=== PATIENT | male | born 1960 | race Caucasian/White ===

== ENCOUNTER 2017-01-13 13:34 | Observation (INO) | payer OTHER ==
--- NOTE | 2017-01-13 13:50 | CPEKG ---
Heart Rate: 55 RR Interval: 1091 P-R Interval: 196 QRSD Interval: 94 QT Interval: 432 QTC Interval: 414 P Palmer: 31 QRS Palmer: -15 T Wave Palmer: 175 EKG Severity - ABNORMAL ECG - EKG Impression: SINUS RHYTHM EKG Impression: BORDERLINE LEFT AXIS DEVIATION EKG Impression: similar to EKG 01/16/16 EKG Impression: T wave inversions laterally Electronically Signed By: Martha Vega 13-Jan-2017 21:08:12
[2017-01-13 14:02] LABS: % IMMATURE GRANULYOCYTES 0.4 % (0.0-1.1); ABSOLUTE IMMATURE GRANULOCYTES 0.03 10^3/uL (0.00-0.10); ADD DIFF? NO; ADD MORPH? NO; ADD SCAN? NO; ATYPICAL LYMPHOCYTE FLAG 10 (0-99); FRAGMENT RBC FLAG 0 (0-99); HEMATOCRIT 46.1 % (40.0-51.0); HEMOGLOBIN 16.1 g/dL (13.7-17.5); LEFT SHIFT FLG 0 (0-99); LIPEMIA HEMOLYSIS FLAG 90 (0-99); MEAN CELL HEMOGLOBIN 29.3 pg (27.9-34.1); MEAN CELL HEMOGLOBIN CONCENTR. 34.9 g/dL (32.4-36.7); MEAN PLATELET VOLUME 9.9 fL (8.7-11.7); PLATELET CLUMPS FLAG 10 (0-99); PLATELET COUNT 227 10^3/uL (150-400); RED BLOOD CELL COUNT 5.49 10^6/uL (4.40-6.38); RED CELL DISTRIBUTION WIDTH 13.2 % (11.5-15.2)
--- NOTE | 2017-01-13 14:11 | EDPHY ---
H & P Time Seen by Provider: 01/13/17 13:54 HPI/ROS: CHIEF COMPLAINT: Shortness of breath HISTORY OF PRESENT ILLNESS: This patient is a 56 year old male with history of OK who presents to the Emergency Department complaining of worsening exertional dyspnea over the past week, significantly worsened over the past two days. He reports that he has been unable to complete his normal runs secondary to shortness of breath. He also reports associated chest discomfort beginning two days ago when walking around his office and presenting intermittently since that time, while exercising and at rest. He also complains of increased fatigue over the past week. He presents today after he was unable to carry a box up two flights of stairs without severe dyspnea. Medical history includes CAD with prior OK and subsequent stenting in 2013; he is followed by Dr. Anjelica Shoemaker, cardiology. REVIEW OF SYSTEMS: Constitutional: No fever, no chills Eyes: No visual changes ENT: No sore throat Respiratory: +exertional dyspnea, no cough Cardiac: +chest discomfort Gastrointestinal: No nausea, no vomiting, no abdominal pain Genitourinary: No hematuria, no dysuria Musculoskeletal: No leg pain or swelling Skin: No rash Neurological: No headache, no numbness, no weakness Psychiatric: No depression Past Medical/Surgical History: CAD with prior OK; cardiac stenting. Social History: with kids. at bedside. Smoking Status: Never smoked Physical Exam: General Appearance: Alert, no distress Eyes: Pupils equal and round, no conjunctival pallor or injection ENT, Mouth: Mucous membranes moist Neck: Normal inspection Respiratory: Lungs are clear to auscultation Cardiovascular: Regular rate and rhythm Gastrointestinal: Abdomen is soft and non- tender Neurological: A&O, nonfocal, normal gait Skin: Warm and dry, no rash Extremities: Nontender, no pedal edema Psychiatric: Mood and affect normal Constitutional: Initial Vital Signs Temperature (C) 36.9 C 01/13/17 13:37 Heart Rate 65 01/13/17 13:37 Respiratory Rate 20 01/13/17 13:37 Blood Pressure 151/99 H 01/13/17 13:37 O2 Sat (%) 97 01/13/17 13:37 O2 Delivery Mode Room Air Allergies/Adverse Reactions: erythromycin base Allergy (Verified 01/15/16 19:16) Penicillins Allergy (Verified 01/15/16 19:16) Home Medications: Medication Instructions Recorded Aspirin EC [Aspirin EC 81 mg (*)] 81 mg PO DAILY 01/15/16 Atorvastatin Calcium [Lipitor 40 40 mg PO DAILY 01/15/16 mg (*)] Assumption-3 Fatty Acids [Fish Oil 1000 1,000 mg PO DAILY 01/15/16 mg (*)] Ticagrelor [Brilinta] 90 mg PO BID #0 tablet 01/16/16 Lisinopril [Zestril 40 mg (*)] 40 mg PO HS 01/13/17 amLODIPine BESYLATE [Norvasc 5 mg 5 mg PO DAILY 01/13/17 (*)] Medical Decision Making - Diagnostics EKG Interpretation: EKG interpreted by me reveals sinus rhythm, rate 55; borderline left axis deviation; T wave changes in inferior lateral leads similar to EKG obtained 01/15. Imaging Results: CXR: NAD Imaging: I viewed and interpreted images myself ED Course/Re-evaluation: This 56-year-old male presents with increasing dyspnea, fatigue over the past two weeks and chest discomfort beginning two days prior to arrival, worse with exertion. He has history of CAD with prior OK and cardiac stenting which presented primarily with dyspnea at that time. Clinical presentation c/w unstable angina. stat EKG without ischemia or dysrhythmia. His exam is benign. Will proceed with cardiac workup; regardless of outcome, plan for admission for continued cardiac monitoring and consultation with on-call health information manager. The patient takes Aspirin daily and took one prior to arrival today. He also took his statin and Lisinopril this morning. Labs obtained: Troponin is negative. Chest x-ray obtained and is normal. EKG is similar to prior obtained in 12/2015. I discussed lab and imaging results with the patient, who is relieved. We will proceed with plan for admission at this time for further cardiac observation. The patient is agreeable to this. 1432: Consultation with Dr. Radha Snyder, hospitalist, who accepts admission for cardiac observation. 1440: Consultation with Dr. Sergei Orourke, health information manager, who will visit the patient in the hospital. Pt asymptomatic throughout his ED stay. 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 Differential Diagnosis: includes though not limited to ACS, PE, CHF, pneumonia, bronchospasm - Data Points Laboratory Results: Laboratory Results 01/13/17 13:50 01/13/17 13:50 Medications Given: Discontinued Medications Amlodipine Besylate (Norvasc) 5 mg PO DAILY [facility] Stop: 07/13/17 08:59 Last Admin: 01/14/17 11:28 Dose: 5 mg Aspirin Buffered (Aspirin Ec) 81 mg PO DAILY [facility] Stop: 07/13/17 08:59 Last Admin: 01/14/17 11:27 Dose: 81 mg Atorvastatin Calcium (Lipitor) 40 mg PO DAILY [facility]IN Stop: 07/13/17 08:59 Last Admin: 01/14/17 11:27 Dose: 40 mg Enoxaparin Sodium (Lovenox) 40 mg SC DAILY TEVIN Stop: 07/13/17 08:59 Last Admin: 01/14/17 11:38 Dose: Not Given Lisinopril (Zestril) 40 mg PO HS [facility] Stop: 07/12/17 20:59 Last Admin: 01/13/17 20:36 Dose: 40 mg [id number] Ethyl Esters (Fish Oil) 1,000 mg PO DAILY TEVIN Stop: 07/13/17 08:59 Last Admin: 01/14/17 11:28 Dose: 1,000 mg Ticagrelor (Brilinta) 90 mg PO BID [facility]IN Stop: 07/12/17 20:59 Last Admin: 01/14/17 11:28 Dose: 90 mg Departure - Departure Disposition: [facility] Inpatient Acute Clinical Impression: Chest pain Qualifiers: Chest pain type: precordial pain Qualified Code(s): R07.2 - Precordial pain Dyspnea Qualifiers: Dyspnea type: dyspnea on exertion Qualified Code(s): R06.09 - Other forms of dyspnea Condition: Good Report Scribed for: Martha Vega Report Scribed by: Heaven Babcock Date of Report: 01/13/17 Time of Report: 14:11 Physician Review and Approval Statement: 01/13/17 14:11 Portions of this note were transcribed by a medical laboratory technical officer. I personally performed a history, physical exam, medical decision making, and confirmed accuracy of information the transcribed note.
[2017-01-13 14:13] LABS: ANION GAP 10 mEq/L (8-16); CALCIUM 9.8 mg/dL (8.5-10.4); CARBON DIOXIDE 28 mEq/l (22-31); CHLORIDE 104 mEq/L (97-110); CREATININE 1.1 mg/dL (0.7-1.3); GLOMERULAR FILTRATION RATE > 60; GLUCOSE 92 mg/dL (70-100); POTASSIUM 4.1 mEq/L (3.5-5.2); SODIUM 142 mEq/L (134-144)
[2017-01-13 14:25] LABS: TROPONIN I 0.016 ng/mL (0-0.034)
[2017-01-13] MEDS ORDERED: ONDANSETRON DISINTEGRATING 4 MG TAB PO PRN (15:17)
[2017-01-13] MEDS ORDERED: oxyCODONE IR 5 MG TAB PO PRN (15:17)
[2017-01-13] MEDS ORDERED: LORazepam 0.5 MG TAB PO PRN (15:17)
[2017-01-13] MEDS ORDERED: ACETAMINOPHEN 325 MG TAB PO PRN (15:17)
[2017-01-13] MEDS ORDERED: ONDANSETRON 4 MG/2 ML VIAL IVP PRN (15:17)
[2017-01-13] MEDS ORDERED: ALBUTEROL 60 PUFFS/8 GM MDI IH PRN (15:17)
--- NOTE | 2017-01-13 18:41 | GHP ---
[f rep st] HISTORY AND PHYSICAL DATE OF ADMISSION: 01/13/2017 CHIEF COMPLAINT: Shortness of breath with exertion. HISTORY: This is a 56-year-old man who has a past medical history of coronary artery disease, statu s post stent to the LAD in April 2014. He notes that he is presenting today with issues of shor tness of breath after climbing 2 flights of stairs and a couple weeks of decreased exercise toleranc e and generalized fatigue. He notes that when he first developed symptoms related to his coronary a rtery disease, they were very similar to the symptoms he is having now. He notes that at that time he had nearly completed a triathlon when he began to develop symptoms of severe fatigue. He was see n at [facility], where he ultimately was evaluated with cardiac catheterization and found to taylor ve a high-grade proximal LAD lesion that was stented. Shortly after that procedure, he was noted to have an EF of 40% that later normalized to 60% to 65%. Since that time. He has had similar sympto ms twice; once in 2013 and the last time in 2015, at which times he was evaluated with coronary rani ogram x2, both of which were negative. He has had treadmill stress tests x2 also since that initial cardiac catheterization, both of which have been negative. He is followed by Dr. Anjelica Shoemaker, and w hen he developed symptoms as described above, he did call her office and was instructed to [facility] for further evaluation. At the time of my evaluation, he feels fine and sta perla that he has no chest pain or shortness of breath while at rest., though, again, does have sympto ms with decreased exercise tolerance and increasing fatigue over the last couple weeks. He has had no swelling of his lower extremities. He has had no fevers or chills, no cough, and no abdominal or urinary complaints. He does not feel as if he has been getting cold or other upper respiratory inf ection. PAST MEDICAL HISTORY: 1. Coronary artery disease, as described in the HPI. 2. Hypertension. 3. Hyperlipidemia, though most recent LDL was 69. PAST SURGICAL HISTORY: Rotator cuff, and coronary angiography. FAMILY HISTORY: Father of an CT at age 65. He also suffered from systemic scleroderma. Sagar calix had hypertension and hyperlipidemia and ultimately of liver cancer. He has a sister who at 45 of CHF in the setting of concurrent Down syndrome. SOCIAL HISTORY: Patient is . He is a never smoker. He is very active, again, running regul glenny and taking part in triathlons. He is a rare user of alcohol. Denies any drug use. Even in th is last week when he has been feeling badly, he has been running up to 3 miles a day. He works as a [employer]. He has 3 children. REVIEW OF SYSTEMS: 10-point review of systems obtained and negative, except as per HPI. MEDICATIONS: Include: 1. Amlodipine. 2. Brilinta. 3. Fish oil. 4. Lisinopril. 5. Atorvastatin. 6. Aspirin. ALLERGIES: Include erythromycin and penicillin. PHYSICAL EXAMINATION: VITAL SIGNS: BP 132/95, heart rate 55, respiratory rate 15, O2 sat 95% on ro om air, temperature is 36.4. GENERAL APPEARANCE: A well-developed/well-nourished man. He is awake and alert. He is in no acute distress. EYES: Anicteric. HENT: Oropharynx clear. CARDIOVASCULA R: RRR, no MRG. PULMONARY: CTA bilaterally. Normal work of breathing. ABDOMEN: Soft, nontender , nondistended. EXTREMITIES: No clubbing, cyanosis, or edema. SKIN: Warm, dry, and well perfused . NEURO/PSYCH: Oriented, appropriate, and pleasant. CLINICAL DATA: Labs reviewed. Basic metabolic panel is completely within normal limits. Troponin is 0.016. ProBNP of 100. CBC is unremarkable. Chest x-ray personally reviewed and interpreted shows chronic versus recurrent airways disease witho ut any consolidation or other acute abnormality. EKG personally reviewed and interpreted shows sinus rhythm. There is a borderline left axis deviati on and evidence of lateral infarct. When compared with prior from 1 year ago, there is no significa nt change other than the prior showed evidence of LVH and secondary repolarization abnormality that has since resolved. ASSESSMENT AND PLAN: This is a 56-year-old man with past medical history of coronary artery disease , presenting with decreased exercise tolerance, shortness of breath, and fatigue, consistent with hi s prior anginal equivalent. 1. Decreased exercise tolerance/shortness of breath/fatigue. Again, this is consistent with his pr ior anginal equivalent. He has no acute EKG changes, and initial workup, including troponin, is unr emarkable. Chest x-ray is likewise unremarkable. His vital signs are normal. This patient and his 's preference is that he be at least considered for coronary angiography, given the similarity to his initial event. Cardiology has been consulted and will see the patient while inhouse. He martín l be kept n.p.o. after midnight in case they do elect to perform an angiography in the morning. An echocardiogram has been ordered and will be performed either this evening or tomorrow. He will be m onitored on telemetry with serial EKGs and troponins. He has had a recent TSH checked, which was 3. 7, so will not repeat that at this time in terms of looking for other causes of his new fatigue. 2. Hypertension. Will continue amlodipine. His blood pressure has been reasonably controlled garry castro this hospitalization thus far. 3. Hyperlipidemia. Continue atorvastatin. DISPOSITION: Observation status. Likely patient will need less than 48 hours' stay for evaluation and management of above. Patient is new to my care. Old records reviewed and summarized as per HPI and past medical history. Care plan reviewed with ER physician, including plans for cardiology consultation and monitoring o n telemetry. Further history obtained from patient's present at bedside. /[id number]/MODL
[2017-01-13 20:11] VITALS: RESP 16
[2017-01-13] MEDS: TICAGRELOR 90 MG TAB PO SCH (20:36)
[2017-01-13] MEDS ORDERED: LISINOPRIL 40 MG TAB PO SCH (21:00)
[2017-01-14 07:53] LABS: ABSOLUTE IMMATURE GRANULOCYTES 0.07 10^3/uL (0.00-0.10); ADD DIFF? NO; ADD MORPH? NO; ADD SCAN? NO; ATYPICAL LYMPHOCYTE FLAG 0 (0-99); FRAGMENT RBC FLAG 10 (0-99); HEMATOCRIT 43.1 % (40.0-51.0); HEMOGLOBIN 15.1 g/dL (13.7-17.5); LEFT SHIFT FLG 0 (0-99); LIPEMIA HEMOLYSIS FLAG 90 (0-99); MEAN CELL HEMOGLOBIN 29.4 pg (27.9-34.1); MEAN CELL VOLUME 83.9 fL (81.5-99.8); MEAN PLATELET VOLUME 9.8 fL (8.7-11.7); PLATELET CLUMPS FLAG 10 (0-99); PLATELET COUNT 219 10^3/uL (150-400); RED BLOOD CELL COUNT 5.14 10^6/uL (4.40-6.38); RED CELL DISTRIBUTION WIDTH 13.3 % (11.5-15.2)
[2017-01-14 08:14] LABS: ANION GAP 10 mEq/L (8-16); CALCIUM 9.4 mg/dL (8.5-10.4); CARBON DIOXIDE 26 mEq/l (22-31); CHLORIDE 105 mEq/L (97-110); CREATININE 1.1 mg/dL (0.7-1.3); GLOMERULAR FILTRATION RATE > 60; GLUCOSE 91 mg/dL (70-100); POTASSIUM 4.2 mEq/L (3.5-5.2); SODIUM 141 mEq/L (134-144)
[2017-01-14 08:21] VITALS: BP 131/89; PULSE 48; TEMP 98; O2SAT 95
[2017-01-14] MEDS ORDERED: ASPIRIN EC 81 MG TAB PO SCH (09:00)
[2017-01-14] MEDS ORDERED: ATORVASTATIN CALCIUM 40 MG TAB PO SCH (09:00)
[2017-01-14] MEDS ORDERED: ENOXAPARIN 40 MG/0.4 ML SYR SC SCH (09:00)
[2017-01-14] MEDS ORDERED: OMEGA-3 FATTY ACIDS 1,000 MG CAP PO SCH (09:00)
[2017-01-14] MEDS ORDERED: amLODIPine BESYLATE 5 MG TAB PO SCH (09:00)
[2017-01-14] MEDS: TICAGRELOR 90 MG TAB PO SCH (11:28)
--- NOTE | 2017-01-14 12:36 | PDCARPN ---
Cardiology Progress Note Assessment/Plan: 56-year-old male with a history of CAD and a non-ST segment elevation AL in April 2014 treated with PCI of the proximal LAD at [facility]. (Followed by Dr. Shoemaker at [facility].) Presented to the emergency department yesterday because of increasing episodes of fatigue over the past 2 weeks. He has had increased stress at work but feels that he is sleeping okay. He has noticed that he simply feels more fatigued than usual. He does not feel that his exercise capacity is as high as it should be. He exercises regularly to a fairly vigorous level but experienced dyspnea carrying a doll house upstairs yesterday. His NSTEMI occurred during a triathlon and his symptoms at that time were predominantly fatigue without any significant component of chest discomfort. This prompted concern over his cardiac status leading to his ER visit. He has been observed on telemetry overnight. He has not had any chest discomfort, arrhythmias or signs of CHF. Serial troponin levels have been normal. His ECG demonstrated lateral precordial T wave inversions similar to this time last year. Since April 2014, he has had 2 repeat heart catheterizations and 2 stress tests. His last heart catheterization took place almost exactly one year ago during a short hospital admission for similar symptoms of fatigue accompanied by some chest tightness. That study demonstrated that his LAD stent was widely patent and the remainder of his coronary tree demonstrated minimal atherosclerosis. (personally reviewed) Recommendation: An echocardiogram is pending this morning. If that study demonstrates normal left ventricular systolic function, I think he can be discharged with plans for outpatient stress testing. In discussing this, his expressed some concern over not knowing exactly what was happening with his coronary circulation. We discussed the mechanisms for acute coronary syndromes and I reassured them that he does not currently have any evidence for a plaque rupture type event. I also explained that even if we went to the cardiac catheterization lab today and found that he had moderate stenoses, it would not alter his current plan of aggressive secondary prevention. They were reassured after an thorough discussion. I will instruct the office staff at [facility] to contact him to arrange an outpatient stress test with nuclear imaging. 01/14/17 12:32 Subjective: No chest pain, dyspnea, or palpitations. Reviewed/Discussed With: family, hospitalist Objective: Vital Signs (8 Hrs) Temp Pulse Resp BP Pulse Ox 01/14/17 08:18 36.7 C 48 L 16 131/89 H 95 Intake/Output (24 Hrs) 01/13/17 01/14/17 01/15/17 05:59 05:59 05:59 Intake Total 1200 Balance 1200 Intake: Oral (ml) 1200 Other: Weight 84.4 kg Number of Voids Toilet 2 Result Diagrams: 01/14/17 03:42 01/14/17 03:42 Cardiac Labs: Cardiac Lab Results (72 Hrs) 01/14/17 01/13/17 00:00 18:11 Troponin I 0.020 0.013 - Physical Exam Constitutional: WDWN, healthy appearing, no apparent distress Eyes: anicteric sclera Ears, Nose, Mouth, Throat: moist mucous membranes Cardiovascular: regular rate and rhythm, no murmurs, no rubs, no gallops Respiratory: clear to auscultate bilat Gastrointestinal: normoactive bowel sounds, no tenderness, no masses Skin: no rashes, no edema Neurologic: AAOx3 Psychiatric: not anxious ICD10 Worksheet Patient Problems: Problems Problem Status Onset Chest pain Acute Dyspnea Acute Elevated troponin Acute
--- NOTE | 2017-01-14 13:09 | CPEKG ---
Heart Rate: 52 RR Interval: 1154 P-R Interval: 196 QRSD Interval: 92 QT Interval: 448 QTC Interval: 417 P Rillton: 27 QRS Rillton: -32 T Wave Rillton: 186 EKG Severity - ABNORMAL ECG - EKG Impression: SINUS RHYTHM EKG Impression: LEFT AXIS DEVIATION EKG Impression: LATERAL INFARCT, AGE INDETERMINATE Electronically Signed By: Jade Aparicio 14-Jan-2017 19:31:03
--- NOTE | 2017-01-14 13:14 | PDDCSUM ---
Discharge Summary Discharge Summary: Dates of service 01/13-01/14/17 Consultations: cardiology procedures performed: echo Hospital course by problem: # fatigue with exertion: this has been his anginal equivalent in the past, trops negative, no ecg changes and no changes noted on echo. 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
--- NOTE | 2017-01-14 15:15 | ECHO ---
[id number] + + [address] : : [place] [address] : : [phone] + + Adult Echocardiographic Report + -------+ :Name: DARYL RAMOS SStudy Date: 01/14/2017 11:47 AM BP: 131/89 mmH g : : Hospital Admission Number: [id number] Locati on: 219: :: 1960 Gender: Male Height: 71 in : :Age: 56 yrs Race: WH Weight: 186 lb : :Reason For Study: chest pain : : BSA: 2.0 meter s2 : :History: CAD, stent : + -------+ MMode/2D Measurements \T\ Calculations IVSd: 1.2 cm RVDd: 3.6 cm FS: 36.1 % Ao root diam: LVPWd: 1.0 cm LVIDd: 5.1 cm EDV(Teich): 3.5 cm LVIDs: 3.2 cm 121.1 ml ESV(Teich): 41.8 ml EF(Teich): 65.5 % LVLd ap4: 9.8 cm SV(MOD-sp4): EDV(MOD-sp4): 108.0 ml 164.0 ml LVLs ap4: 8.2 cm ESV(MOD-sp4): 56.0 ml EF(MOD-sp4): 65.9 % Normal Measurement Values: + + :LVIDd (3.5-5.7cm) IVSd (0.6-1.1cm) LVPWd (0.6-1.1cm) Aortic Root (2.0-3.7cm)Left Atrium (1.5-4.0cm): :LV Vol(d) (76-115ml) LV Vol(s) (29-48ml) Ejec Fraction (50-65%)PV John (0.6- 1.2m/s) TV John (0.4-1.0m/s) : :MV E John (0.8-1.0m/s)MV A John (0.3-1.0m/s)LVOT John (0.7-1.2m/s) Asc Ao John ( 0.9-1.8m/s) : + + Doppler Measurements \T\ Calculations MV E max john: Ao V2 max: LV V1 max: PA V2 max: 44.2 cm/sec 95.0 cm/sec 110.0 cm/sec 92.3 cm/sec MV A max john: Ao max PG: LV V1 max PG: PA max P.3 cm/sec 3.6 mmHg 4.8 mmHg 3.4 mmHg MV E/A: 0.83 MV dec time: 0.34 sec Left Ventricle The left ventricle is normal in size and function. There is normal left ventricular wall thickness. Ejection Fraction = 65%. No regional wall motion abnormalities noted. Right Ventricle The right ventricle is normal in size and function. Atria The left atrial size is normal. Right atrial size is normal. Mitral Valve The mitral valve is normal in structure and function. There is no mitral valve stenosis. There is trace to mild mitral regurgitation. Tricuspid Valve The tricuspid valve is normal in structure and function. There is no tricuspid stenosis. There is trace tricuspid regurgitation. Aortic Valve The aortic valve is normal in structure and function. The aortic valve is trileaflet. There is no aortic stenosis. There is no aortic insufficiency. Pulmonic Valve The pulmonic valve is not well visualized. Great Vessels The aortic root is normal size. Pericardium/Pleural There is no pericardial effusion. Conclusion A two-dimensional transthoracic echocardiogram with M-mode and Doppler was performed. The left ventricle is normal in size and function. Ejection Fraction = 65%. No regional variation in contractility. Normal appearing valvular structures. There is trace to mild mitral regurgitation. There is trace tricuspid regurgitation. Final Reading Physician: Alfredo Slade signed on 01/14/2017 03:14 PM Ordering Physician: Era Snyder Performed By: Sangeeta Sultana
== END 2017-01-14 13:44 | disposition home or self-care (01) ==
LOC: F2W 14:50
PROVIDERS: ADMIT Internal Medicine; ATTEND Internal Medicine
DX: R53.83 Other fatigue (principal); R06.09 Other forms of dyspnea; I25.10 Atherosclerotic heart disease of native coronary artery without angina pectoris; I10 Essential (primary) hypertension; I25.2 Old myocardial infarction; E78.5 Hyperlipidemia, unspecified; Z79.82 Long term (current) use of aspirin; Z82.49 Family history of ischemic heart disease and other diseases of the circulatory system; Z95.5 Presence of coronary angioplasty implant and graft; Z88.0 Allergy status to penicillin
CPT/HCPCS: 71020; 93005; 93306; G0378

== ENCOUNTER 2018-08-04 20:06 | Observation (INO) | payer OTHER ==
[2018-08-04] MEDS ORDERED: ASPIRIN 81 MG CHEWABLE TAB PO ONE (20:17)
--- NOTE | 2018-08-04 20:29 | EDPHY ---
H & P Time Seen by Provider: 08/04/18 20:19 HPI/ROS: HPI Fatigue, chest pressure, history of coronary artery disease. 57-year-old male by private vehicle with his . This patient reports that he has been feeling unusually fatigued over the last 2-3 days and much more so today. Today's fatigue was accompanied by chest pressure which is been present for the last 2-3 hours but seems better now. He reports that he has a history of an AL and LAD stent 4 years ago. He reports that he presented to the emergency department with very similar symptoms to this for years ago when he had his AL. He reports that he has had chronically elevated troponins without evidence of acute coronary syndrome as well. He denies any significant shortness of breath. ROS: Constitutional: No fever, no chills. As above. Eyes: No discharge. No changes in vision. ENT: No sore throat. No nasal congestion or rhinorrhea. Respiratory: No cough. No shortness of breath. Cardiac: As above, no palpitations. Gastrointestinal: No abdominal pain, no vomiting, no diarrhea. Genitourinary: No hematuria. No dysuria or increased frequency with urination. Musculoskeletal: No back pain. No neck pain. No myalgias or arthralgias. Skin: No rashes. Neurological: No headache. No focal weakness or altered sensation. Past medical history: Hyperlipidemia, hypertension, non STEMI AL with stent placement as above 2013, Dr. 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 Social history: Nonsmoker. Here with his . No alcohol. Physical Exam: General Appearance: Alert, no distress. This patient is responding to questions appropriately and in full sentences. This patient appears well- hydrated and well-nourished. Eyes: Pupils equal and round no pallor or injection. No lid edema, erythema or injection. Respiratory: There are no retractions, lungs are clear to auscultation with good air movement bilaterally. Cardiovascular: Regular rate and rhythm. No murmur appreciated. Gastrointestinal: Abdomen is soft and nontender, no masses, bowel sounds normal. No focal tenderness at McBurney's point. No Neff sign. Neurological: Motor sensory function is grossly intact. Cranial nerves are normal. Gait is normal. Skin: Warm and dry, no rashes. Musculoskeletal: Neck is supple and nontender. Extremities are symmetrical. All joints range without pain or impingement. Psychiatric: No agitation. No depression. Database: EKG: EKG time is 8:16 p.m.; EKG shows a narrow complex normal sinus rhythm with a ventricular rate of 64. Possible left ventricular hypertrophy. The AL, QRS, QT intervals are within normal limits. There are no ST-T wave changes indicative of ischemic or injury pattern. No evidence of right heart strain. Interpreted by me. Imaging: Chest x-ray AP portable; the cardiac mediastinal silhouette is unremarkable. No evidence of infiltrate or pneumothorax. No acute cardiopulmonary disease process noted. Interpreted by me. Procedures: Emergency department course: Triage vital signs reviewed. He was initially hypertensive on arrival. Currently his blood pressure is 104 over 90. Vital signs are otherwise unremarkable. The time of my evaluation he denies any chest pain. He was given 324 mg of chewed aspirin. EKG obtained and reviewed by myself. I discussed admission given his history. He and his endorse. 9:05 p.m., patient re-evaluated, resting comfortably. Denies chest pain currently. Results of her emergency department workup discussed with him and his . Plan for admission discussed. All of their questions were answered. Hospitalist paged. 9:15 p.m., spoke with on-call hospitalist Dr. Tafoya. Case discussed in detail with her. She accepts this patient for admission to telemetry observation. Patient admitted in stable condition. Differential Diagnosis: The differential diagnosis on this patient includes but is not limited to acute coronary syndrome, hypothyroid state, viral syndrome. Myocarditis, pericarditis , aortic dissection, pulmonary embolism unlikely. This represents a partial list of diagnoses considered. These considerations are based on history, physical exam, past history, reassessment and diagnostic testing. Smoking Status: Never smoked Constitutional: Initial Vital Signs Temperature (C) 36.5 C 08/04/18 20:08 Heart Rate 63 08/04/18 20:08 Respiratory Rate 20 08/04/18 20:08 Blood Pressure 161/106 H 08/04/18 20:08 O2 Sat (%) 97 08/04/18 20:08 O2 Delivery Mode Room Air Allergies/Adverse Reactions: erythromycin base Allergy (Verified 08/04/18 20:07) Penicillins Allergy (Verified 08/04/18 20:07) Home Medications: Medication Instructions Recorded Aspirin EC [Aspirin EC 81 mg (*)] 81 mg PO DAILY 01/15/16 Atorvastatin Calcium [Lipitor 40 40 mg PO DAILY 01/15/16 mg (*)] [place]-3 Fatty Acids [Fish Oil 1000 1,000 mg PO DAILY 01/15/16 mg (*)] Ticagrelor [Brilinta] 90 mg PO BID #0 tablet 01/16/16 Lisinopril [Zestril 40 mg (*)] 40 mg PO HS 01/13/17 amLODIPine BESYLATE [Norvasc 5 mg 5 mg PO DAILY 01/13/17 (*)] Synthroid 25 mcg (*) 08/04/18 Medical Decision Making - Diagnostics Imaging Results: Imaging Impressions Chest X-Ray 08/04/18 20:18 Impression: Negative portable chest. - Data Points Laboratory Results: Laboratory Results 08/04/18 20:18 08/04/18 20:18 08/04/18 08/04/18 08/04/18 20:20 20:18 20:18 WBC RBC Hgb Hct MCV MCH MCHC RDW Plt Count MPV Neut % (Auto) Lymph % (Auto) [place] % (Auto) Eos % (Auto) Baso % (Auto) Nucleat RBC Rel Count Absolute Neuts (auto) Absolute Lymphs (auto) Absolute Monos (auto) Absolute Eos (auto) Absolute Basos (auto) Absolute Nucleated RBC Immature Gran % Immature Gran # PT 13.4 SEC SEC (12.0-15.0) INR 1.00 (0.83-1.16) APTT 28.6 SEC SEC (23.0-38.0) Sodium 142 mEq/L mEq/L (135-145) Potassium 4.1 mEq/L mEq/L (3.5-5.2) Chloride 104 mEq/L mEq/L (97-110) Carbon Dioxide 28 mEq/l mEq/l (22-31) Anion Gap 10 mEq/L mEq/L (6-14) BUN 16 mg/dL mg/dL (7-23) Creatinine 1.1 mg/dL mg/dL (0.7-1.3) Estimated GFR > 60 Glucose 119 mg/dL H mg/dL (70-100) Calcium 9.2 mg/dL mg/dL (8.5-10.4) POC Troponin I 0.03 ng/mL ng/mL (0.00-0.08) 08/04/18 20:18 WBC 7.45 10^3/uL 10^3/uL (3.80-9.50) RBC 5.38 10^6/uL 10^6/uL (4.40-6.38) Hgb 15.3 g/dL g/dL (13.7-17.5) Hct 44.6 % % (40.0-51.0) MCV 82.9 fL fL (81.5-99.8) MCH 28.4 pg pg (27.9-34.1) MCHC 34.3 g/dL g/dL (32.4-36.7) RDW 13.4 % % (11.5-15.2) Plt Count 222 10^3/uL 10^3/uL (150-400) MPV 10.0 fL fL (8.7-11.7) Neut % (Auto) 52.5 % % (39.3-74.2) Lymph % (Auto) 34.0 % % (15.0-45.0) [place] % (Auto) 9.1 % % (4.5-13.0) Eos % (Auto) 3.4 % % (0.6-7.6) Baso % (Auto) 0.7 % % (0.3-1.7) Nucleat RBC Rel Count 0.0 % % (0.0-0.2) Absolute Neuts (auto) 3.92 10^3/uL 10^3/uL (1.70-6.50) Absolute Lymphs (auto) 2.53 10^3/uL 10^3/uL (1.00-3.00) Absolute Monos (auto) 0.68 10^3/uL 10^3/uL (0.30-0.80) Absolute Eos (auto) 0.25 10^3/uL 10^3/uL (0.03-0.40) Absolute Basos (auto) 0.05 10^3/uL 10^3/uL (0.02-0.10) Absolute Nucleated RBC 0.00 10^3/uL 10^3/uL (0-0.01) Immature Gran % 0.3 % % (0.0-1.1) Immature Gran # 0.02 10^3/uL 10^3/uL (0.00-0.10) PT INR APTT Sodium Potassium Chloride Carbon Dioxide Anion Gap BUN Creatinine Estimated GFR Glucose Calcium POC Troponin I Medications Given: Discontinued Medications Aspirin (Aspirin) 324 mg PO EDNOW ONE Stop: 08/04/18 20:18 Last Admin: 08/04/18 20:24 Dose: 324 mg Point of Care Test Results: Chemistry 08/04/18 20:20 POC Troponin I 0.03 ng/mL ng/mL (0.00-0.08) Departure - Departure Disposition: [facility] Inpatient Acute Clinical Impression: Chest pain, Fatigue, History of coronary artery disease Referrals: Federico Durham MD [Primary Care Provider] - As per Instructions
[2018-08-04 20:39] LABS: PLATELET COUNT 222 10^3/uL (150-400)
[2018-08-04 20:52] LABS: PROTIME(PATIENT) 13.4 SEC (12.0-15.0)
[2018-08-04] MEDS ORDERED: ONDANSETRON DISINTEGRATING 4 MG TAB PO PRN (21:33)
[2018-08-04] MEDS ORDERED: ONDANSETRON 4 MG/2 ML VIAL IVP PRN (21:33)
[2018-08-04] MEDS ORDERED: LORazepam 0.5 MG TAB PO PRN (21:33)
[2018-08-04] MEDS ORDERED: HYDROCODONE/APAP 5/325 TAB PO PRN (21:33)
[2018-08-04] MEDS ORDERED: ACETAMINOPHEN 325 MG TAB PO PRN (21:33)
[2018-08-04] MEDS ORDERED: NITROGLYCERIN 0.4 MG BTL SL PRN (21:36)
--- NOTE | 2018-08-04 23:05 | PDGENHP ---
History and Physical - Chief Complaint chest pain - History of Present Illness 57 yo male with h/o nstemi in 2013 and PCI to LAD presents to ED with fatigue and elevated BP to 150/100. He denies chest pain, but felt some tightness across his chest. He notes this is a similar feeling to how he felt when he had his nstemi during a triathlon in 2013. Today, he did a run on his treadmill and his body felt heavy. He denies diaphoresis, nausea or SOB. He thinks in general he may be more winded than normal. No radiation of the pain. Since his NSTEMI in 2013, he had a cardiac cath in 12/2015, which showed a patent LAD stent and no other significant CAD. He was admitted in 12/2016 for chest pain rule out and then underwent nuclear medicine stress test as an outpatient shortly after that, which was negative for ischemia. His cardiac risk factors include hypertension, hyperlipidemia, and family h/o CAD (dad of SD at age 65). He is a non-smoker, not a diabetic. In the ED, troponin is negative. EKG is unchanged from prior with lateral T wave inversions. He is currently chest pain free. He'll be admitted overnight for further evaluation and cardiology consultation in the am. History Information - Allergies/Home Medication List Allergies/Adverse Reactions: erythromycin base Allergy (Severe, Verified 08/04/18 21:56) Anaphylaxis Penicillins Allergy (Severe, Verified 08/04/18 21:56) Anaphylaxis Home Medications: Aspirin EC [Aspirin EC 81 mg (*)] 81 mg PO DAILY 01/15/16 [Last Taken 08/04/18 07:30] Atorvastatin Calcium [Lipitor 40 mg (*)] 40 mg PO DAILY 01/15/16 [Last Taken 05/14 07:30] [place]-3 Fatty Acids [Fish Oil 1000 mg (*)] 1,000 mg PO HS 01/15/16 [Last Taken 08/03/18 22:00] Lisinopril [Zestril 40 mg (*)] 40 mg PO HS 01/13/17 [Last Taken 08/03/18 22:00] amLODIPine BESYLATE [Norvasc 5 mg (*)] 5 mg PO DAILY 01/13/17 [Last Taken 07:30] Cholecalciferol Vit D3 [Vitamin D3 (*)] 1,000 units PO HS 08/04/18 [Last Taken 08/03/18 22:00] Herbals/Supplements -Info Only 1 ea PO DAILY 08/04/18 [Last Taken Unknown] Levothyroxine [Synthroid 25 mcg (*)] 25 mcg PO DAILY@07 08/04/18 [Last Taken 05/14 07:30] I have personally reviewed and updated: family history, medical history, social history, surgical history - Past Medical History coronary artery disease, hypertension, hyperlipidemia Additional medical history: CAD - h/o nstemi 2013 with PCI to LAD. hypothyroidism - Surgical History Additional surgical history: angiogram 2013. rotator cuff repair 2014 - Family History Positive for: hypertension, stroke Additional family history: dad [place] age 65. dad had scleroderma - Social History Smoking Status: Never smoked Alcohol Use: None Drug Use: None Additional social history: . Active. 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 Review of Systems Review of Systems: ROS: 10pt was reviewed & negative except for what was stated in HPI & below Physical Exam Physical Exam: Temp Pulse Resp BP Pulse Ox 36.6 C 54 L 16 137/96 H 97 08/04/18 22:12 08/04/18 22:12 08/04/18 22:12 08/04/18 22:12 08/04/18 22:12 Constitutional: no apparent distress Eyes: PERRL Ears, Nose, Mouth, Throat: moist mucous membranes Cardiovascular: regular rate and rhythym, no murmur, rub, or gallop Respiratory: no respiratory distress, clear to auscultation Gastrointestinal: normoactive bowel sounds, soft, non-tender abdomen Skin: warm Musculoskeletal: full muscle strength Neurologic: AAOx3 Psychiatric: interacting appropriately Lab Data & Imaging Review 08/04/18 20:18 08/04/18 20:18 WBC 7.45 10^3/uL (3.80-9.50) 08/04/18 20:18 RBC 5.38 10^6/uL (4.40-6.38) 08/04/18 20:18 Hgb 15.3 g/dL (13.7-17.5) 08/04/18 20:18 Hct 44.6 % (40.0-51.0) 08/04/18 20:18 MCV 82.9 fL (81.5-99.8) 08/04/18 20:18 MCH 28.4 pg (27.9-34.1) 08/04/18 20:18 MCHC 34.3 g/dL (32.4-36.7) 08/04/18 20:18 RDW 13.4 % (11.5-15.2) 08/04/18 20:18 Plt Count 222 10^3/uL (150-400) 08/04/18 20: MPV 10.0 fL (8.7-11.7) 08/04/18 20:18 Neut % (Auto) 52.5 % (39.3-74.2) 08/04/18 20: Lymph % (Auto) 34.0 % (15.0-45.0) 08/04/18: [place] % (Auto) 9.1 % (4.5-13.0) 08/04/18 20:18 Eos % (Auto) 3.4 % (0.6-7.6) 08/04/18: Baso % (Auto) 0.7 % (0.3-1.7) 08/04/18 20:18 Nucleat RBC Rel Count 0.0 % (0.0-0.2) 08/04/18 20: Absolute Neuts (auto) 3.92 10^3/uL (1.70-6.50) 08/04/18 20:18 Absolute Lymphs (auto) 2.53 10^3/uL (1.00-3.00) 08/04/18 20:18 Absolute Monos (auto) 0.68 10^3/uL (0.30-0.80) 08/04/18 20:18 Absolute Eos (auto) 0.25 10^3/uL (0.03-0.40) 08/04/18 20:18 Absolute Basos (auto) 0.05 10^3/uL (0.02-0.10) 08/04/18 20:18 Absolute Nucleated RBC 0.00 10^3/uL (0-0.01) 08/04/18 20:18 Immature Gran % 0.3 % (0.0-1.1) 08/04/18 20:18 Immature Gran # 0.02 10^3/uL (0.00-0.10) 08/04/18 20:18 PT 13.4 SEC (12.0-15.0) 08/04/18 20:18 INR 1.00 (0.83-1.16) 08/04/18 20:18 APTT 28.6 SEC (23.0-38.0) 08/04/18 20:18 Sodium 142 mEq/L (135-145) 08/04/18 20:18 Potassium 4.1 mEq/L (3.5-5.2) 08/04/18 20:18 Chloride 104 mEq/L (97-110) 08/04/18 20:18 Carbon Dioxide 28 mEq/l (22-31) 08/04/18 20:18 Anion Gap 10 mEq/L (6-14) 08/04/18 20:18 BUN 16 mg/dL (7-23) 08/04/18 20:18 Creatinine 1.1 mg/dL (0.7-1.3) 08/04/18 20:18 Estimated GFR > 60 08/04/18 20:18 Glucose 119 mg/dL (70-100) H 08/04/18 20:18 Calcium 9.2 mg/dL (8.5-10.4) 08/04/18 20:18 POC Troponin I 0.03 ng/mL (0.00-0.08) 08/04/18 20:20 Assessment & Plan Assessment: Fatigue / chest tightness - suspicion for ACS is low with neg trop several hours after onset of symptoms and no ekg changes. Given this is similar feeling to his prior SD, will admit for serial trops. Cath 12/2015 clean. Stress test shortly after neg for ischemia. -admit to cardiac telemetry -trend trop -repeat ekg if CP or symptoms recur to assess for evolutionary changes -cardiology to consult in am (have not talked with cards yuri, ordered consult for am), will keep npo at midnight -check tsh CAD with h/o NSTEMI 2013 with PCI to LAD -cont ASA/brilinta -cont statin Hypothyroidism - started synthroid in 01/2018 -check tsh as above MIMI - currently non-compliant with cpap -outpt f/u with sleep medicine to troubleshoot cpap issues Hypertension - cont lisinopril, norvasc Hyperlipidemia - cont statin Full code Dispo - obs
[2018-08-04] MEDS ORDERED: LISINOPRIL 40 MG TAB PO SCH (23:22)
[2018-08-04] MEDS: TICAGRELOR 90 MG TAB PO SCH (23:37)
[2018-08-05] MEDS ORDERED: LEVOTHYROXINE 25 MCG TAB PO SCH (07:00)
[2018-08-05] MEDS: TICAGRELOR 90 MG TAB PO SCH (08:16)
[2018-08-05] MEDS ORDERED: ASPIRIN EC 81 MG TAB PO SCH (09:00)
[2018-08-05] MEDS ORDERED: ATORVASTATIN CALCIUM 40 MG TAB PO SCH (09:00)
[2018-08-05] MEDS ORDERED: amLODIPine BESYLATE 5 MG TAB PO SCH (09:00)
--- NOTE | 2018-08-05 10:59 | PDPROPOC ---
Sedation Plan of Care Sedation Plan of Care: vital signs stable, mental status noted, patient educated of risks, benefits, alternatives, patient can tolerate sedation ASA Classification: ASA 2 Planned drugs: fentanyl, midazolam Mallampati Score: Class 1 Mallampati Reference Image: Patient passed 3-3-2 rule?: Yes
--- NOTE | 2018-08-05 11:03 | PDCARCONS ---
Cardiology Consult Reason for Consult: Fatigue Chief Complaint: Fatigued and ill feeling Requesting Physician: Jaziel History of Present Illness: 57-year-old male known coronary disease history of LAD PCI returns with symptoms the same as prior to his acute coronary syndrome intervention. Patient woke yesterday not feeling well he was overall fatigue. There is a sense of ill ease. Based on prior symptoms and prior event he came to emergency room for further evaluation. He has known coronary disease with a history of LAD PCI at the time of an iron Man. At that time he was exercising quite vigorously. He finished the triathlon with similar symptoms. Troponins were found to be elevated he was found have critical LAD disease and underwent stenting. 18 months later he had a repeat angiogram to confirm stent patency. He has done well since that time. He exercises regularly. He denies PND orthopnea. He has had no syncope or near syncope. He has had no palpitations. History Information - Allergies/Home Medication List Allergies/Adverse Reactions: erythromycin base Allergy (Severe, Verified 08/04/18 21:56) Anaphylaxis Penicillins Allergy (Severe, Verified 08/04/18 21:56) Anaphylaxis Home Medications: Aspirin EC [Aspirin EC 81 mg (*)] 81 mg PO DAILY 01/15/16 [Last Taken 08/04/18 07:30] Atorvastatin Calcium [Lipitor 40 mg (*)] 40 mg PO DAILY 01/15/16 [Last Taken 05/14 07:30] [place]-3 Fatty Acids [Fish Oil 1000 mg (*)] 1,000 mg PO HS 01/15/16 [Last Taken 08/03/18 22:00] Lisinopril [Zestril 40 mg (*)] 40 mg PO HS 01/13/17 [Last Taken 08/03/18 22:00] amLODIPine BESYLATE [Norvasc 5 mg (*)] 5 mg PO DAILY 01/13/17 [Last Taken 07:30] Cholecalciferol Vit D3 [Vitamin D3 (*)] 1,000 units PO HS 08/04/18 [Last Taken 08/03/18 22:00] Herbals/Supplements -Info Only 1 ea PO DAILY 08/04/18 [Last Taken Unknown] Levothyroxine [Synthroid 25 mcg (*)] 25 mcg PO DAILY@08/04/18 [Last Taken 05/14 07:30] I have personally reviewed and updated: family history, medical history, social history Past Medical History: - Past Medical History coronary artery disease - Surgical History Reports: coronary stent - Social History Smoking Status: Never smoked Alcohol Use: None Drug Use: None Physical Exam Physical Exam: Temp Pulse Resp BP Pulse Ox 36.6 C 54 L 12 133/85 H 96 08/05/18 07:19 08/05/18 07:19 08/05/18 07:19 08/05/18 07:19 08/05/18 07:19 Lab and Imaging 08/04/18 20:18 08/04/18 20:18 WBC 7.45 10^3/uL (3.80-9.50) 08/04/18 20:18 RBC 5.38 10^6/uL (4.40-6.38) 08/04/18 20:18 Hgb 15.3 g/dL (13.7-17.5) 08/04/18 20:18 Hct 44.6 % (40.0-51.0) 08/04/18 20:18 MCV 82.9 fL (81.5-99.8) 08/04/18 20:18 MCH 28.4 pg (27.9-34.1) 08/04/18 20:18 MCHC 34.3 g/dL (32.4-36.7) 08/04/18 20:18 RDW 13.4 % (11.5-15.2) 08/04/18 20:18 Plt Count 222 10^3/uL (150-400) 08/04/18 20:18 MPV 10.0 fL (8.7-11.7) 08/04/18 20:18 Neut % (Auto) 52.5 % (39.3-74.2) 08/04/18 20:18 Lymph % (Auto) 34.0 % (15.0-45.0) 08/04/18 20:18 [place] % (Auto) 9.1 % (4.5-13.0) 08/04/18 20:18 Eos % (Auto) 3.4 % (0.6-7.6) 08/04/18 20:18 Baso % (Auto) 0.7 % (0.3-1.7) 08/04/18 20:18 Nucleat RBC Rel Count 0.0 % (0.0-0.2) 08/04/18 20:18 Absolute Neuts (auto) 3.92 10^3/uL (1.70-6.50) 08/04/18 20:18 Absolute Lymphs (auto) 2.53 10^3/uL (1.00-3.00) 08/04/18 20:18 Absolute Monos (auto) 0.68 10^3/uL (0.30-0.80) 08/04/18 20:18 Absolute Eos (auto) 0.25 10^3/uL (0.03-0.40) 08/04/18 20: Absolute Basos (auto) 0.05 10^3/uL (0.02-0.10) 08/04/18 20:18 Absolute Nucleated RBC 0.00 10^3/uL (0-0.01) 08/04/18 20: Immature Gran % 0.3 % (0.0-1.1) 08/04/18 20: Immature Gran # 0.02 10^3/uL (0.00-0.10) 08/04/18 20:18 PT 13.4 SEC (12.0-15.0) 08/04/18 20:18 INR 1.00 (0.83-1.16) 08/04/18 20:18 APTT 28.6 SEC (23.0-38.0) 08/04/18 20:18 Sodium 142 mEq/L (135-145) 08/04/18 20:18 Potassium 4.1 mEq/L (3.5-5.2) 08/04/18 20:18 Chloride 104 mEq/L (97-110) 08/04/18 20:18 Carbon Dioxide 28 mEq/l (22-31) 08/04/18 20:18 Anion Gap 10 mEq/L (6-14) 08/04/18 20:18 BUN 16 mg/dL (7-23) 08/04/18 20:18 Creatinine 1.1 mg/dL (0.7-1.3) 08/04/18 20:18 Estimated GFR > 60 08/04/18 20:18 Glucose 119 mg/dL (70-100) H 08/04/18 20:18 Calcium 9.2 mg/dL (8.5-10.4) 08/04/18 20:18 POC Troponin I 0.03 ng/mL (0.00-0.08) 08/04/18 20:20 Troponin I 0.017 ng/mL (0.000-0.034) 08/05/18 08:04 TSH 3.520 uIU/mL (0.465-4.680) 08/04/18 20:18 Visualized and Interpreted Chest x-ray results: Yes Visualized and Interpreted imaging results: Yes Visualized and Interpreted EKG results: Yes A/P Assessment: 57-year-old male known coronary disease history of LAD PCI in the setting of fatigue and malaise and ill ease. Recurrent symptoms typical of his angina. EKG does not suggest acute injury. Initial troponin 0.017. Recommendations are for diagnostic angiogram for definitive risk stratification with clinical follow-up. Risks and benefits of this approach were discussed. Will proceed from the right radial artery. Review of Systems Review of Systems: - Review of Systems Constitutional: malaise, weakness. denies: chills, fever EENTM: no symptoms reported Respiratory: no symptoms reported Gastrointestinal/Abdominal: no symptoms reported Genitourinary: no symptoms Musculoskelatal: no symptoms Skin: no symptoms
[2018-08-05] MEDS ORDERED: TEMAZEPAM 15 MG CAP PO PRN (11:14)
[2018-08-05] MEDS ORDERED: DIAZEPAM 5 MG TAB PO ONE (11:14)
[2018-08-05] MEDS ORDERED: diphenhydrAMINE 25 MG CAP PO ONE (11:14)
[2018-08-05] MEDS ORDERED: FAMOTIDINE 20 MG TAB PO ONE (11:14)
[2018-08-05 12:12] LABS: PLATELET COUNT 204 10^3/uL (150-400)
[2018-08-05 12:29] LABS: INR 1.03 (0.83-1.16); PROTIME(PATIENT) 13.7 SEC (12.0-15.0)
[2018-08-05] MEDS ORDERED: fentaNYL 100 MCG/2 ML INJ ONE (13:01)
[2018-08-05] MEDS ORDERED: LIDOCAINE 1% 300 MG/30 ML SDV ONE (13:01)
[2018-08-05] MEDS ORDERED: MIDAZOLAM 2 MG/2 ML VIAL ONE ×2 (13:01)
[2018-08-05] MEDS ORDERED: VERAPAMIL 5 MG/2 ML VIAL ONE (13:02)
[2018-08-05] MEDS ORDERED: IOPAMIDOL (ISOVUE-370) 150 ML BTL IV ONE (13:02)
[2018-08-05] MEDS ORDERED: HEPARIN 10,000 UNIT/10 ML MDV (1,000 UNIT/ML) ONE (13:02)
--- NOTE | 2018-08-05 15:52 | PDDCSUM ---
Discharge Summary Discharge Summary: Dates of service 08/04-/08/05/18 Consultation: cardiology Procedures performed: cardiac cath Hospital course by problem: Fatigue / chest tightness - similar to his prior anginal sxs so taken for cath by cardiology--cath negative, will dc home, patient to f/u with pcp regarding these sxs if they continue CAD with h/o NSTEMI 2013 with PCI to LAD -cont ASA/brilinta -cont statin Hypothyroidism - started synthroid in 01/2018, tsh 3.5 MIMI - currently non-compliant with cpap -outpt f/u with sleep medicine to troubleshoot cpap issues Hypertension - cont lisinopril, norvasc--bp has been mildly elevated here (120- 140s systolic for the most part), patient plans 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 Shoemaker and PCP > 35 min spent in dc more than half in coordination of care
--- NOTE | 2018-08-05 16:18 | CPEKG ---
Test Reason : OPEN Blood Pressure : / mmHG Vent. Rate : 058 BPM Atrial Rate : 059 BPM P-R Int : 189 ms QRS Dur : 098 ms QT Int : 445 ms P-R-T Axes : 056 -40 173 degrees QTc Int : 438 ms Sinus rhythm Left axis deviation Probable lateral infarct, age indeterminate Confirmed by Greg Barboza ([id number]) on 08/05/2018 4:17:33 PM Referred By: Confirmed By:Greg Barboza
[2018-08-05 16:53] VITALS: BP 132/91
[2018-08-05] MEDS ORDERED: LISINOPRIL 40 MG TAB PO SCH (21:00)
--- NOTE | 2018-08-09 15:18 | CPEKG ---
Test Reason : OPEN Blood Pressure : / mmHG Vent. Rate : 064 BPM Atrial Rate : 064 BPM P-R Int : 186 ms QRS Dur : 098 ms QT Int : 417 ms P-R-T Axes : 023 -35 102 degrees QTc Int : 431 ms Sinus rhythm LVH with secondary repolarization abnormality Probable lateral infarct, age indeterminate Confirmed by Kenan Reyes ([id number]) on 08/09/2018 3:18:42 PM Referred By: Confirmed By:Kenan Reyes
== END 2018-08-05 18:05 | disposition home or self-care (01) ==
LOC: F2W 21:58
PROVIDERS: ADMIT Family Medicine; ATTEND Family Medicine
DX: I25.10 Atherosclerotic heart disease of native coronary artery without angina pectoris (principal); G47.33 Obstructive sleep apnea (adult) (pediatric); I25.2 Old myocardial infarction; I10 Essential (primary) hypertension; E78.5 Hyperlipidemia, unspecified
CPT/HCPCS: 71045; 93005; 93458; 99285; C1769; G0378; 84484-PO; J1644; J2250; J3010; Q9967